=== PATIENT | female | born 2000 | race Caucasian/White ===

== ENCOUNTER 2024-08-15 15:35 | Emergency (ER) | payer MEDICAID ==
[~2024-08-15] VITALS: Ht 152.4 cm; Wt 72.6 kg
[2024-08-15 16:14] VITALS: O2SAT 98
[2024-08-15] MEDS: TETANUS, DIPHTHERIA, PERTUSSIS VAC/PF 0.5ML (>10YR OLD) IM ONE (20:42)
[2024-08-15 22:16] VITALS: BP 135/87; PULSE 86; RESP 16; TEMP 36.83628; O2SAT 98
== END 2024-08-15 22:18 | disposition home or self-care (01) ==
LOC: ER 15:35
DX: S60.512A Abrasion of left hand, initial encounter (principal); S60.511A Abrasion of right hand, initial encounter; S80.812A Abrasion, left lower leg, initial encounter; S80.811A Abrasion, right lower leg, initial encounter; T14.8XXA Other injury of unspecified body region, initial encounter; E78.00 Pure hypercholesterolemia, unspecified; Z98.890 Other specified postprocedural states; W22.8XXA Striking against or struck by other objects, initial encounter; Y93.89 Activity, other specified; Y92.89 Other specified places as the place of occurrence of the external cause; Y99.8 Other external cause status
CPT/HCPCS: 73090; 73100; 73120; 73590; 73600; 73620; 90715; 90471; 99284; Z7610